=== PATIENT | male | born 1950 ===

== ENCOUNTER → 2025-05-18 | Outpatient (CLI) | payer OTHER ==
[~2025-05-18] MED LIST: ACET-2247 PO; CALC500T37 PO; DICL100G60 TP; DULO60CA73 PO; EMPA25TA3 PO; FAMO20 PO; FLUC150T61 PO; HYDR25TA2 PO; INSLAN SQ; KETO-99 OU; LACT20PA6 PO; LEVA15HF3 IH; LISI-894 PO; METF-1211 PO; PROCTOCM TP; ROSU20TA98 PO; TIOT185 IH; [UNRECOGNIZED DRUG - CODE] TP
== END | disposition home or self-care (01) ==
LOC: TELEHEALTH 07:38
PROVIDERS: ATTEND Internal Medicine
DX: I12.9 Hypertensive chronic kidney disease with stage 1 through stage 4 chronic kidney disease, or unspecified chronic kidney disease (principal); E11.22 Type 2 diabetes mellitus with diabetic chronic kidney disease; N18.30 Chronic kidney disease, stage 3 unspecified; E11.40 Type 2 diabetes mellitus with diabetic neuropathy, unspecified; E78.5 Hyperlipidemia, unspecified; J84.9 Interstitial pulmonary disease, unspecified; Z79.84 Long term (current) use of oral hypoglycemic drugs; Z79.899 Other long term (current) drug therapy; Z87.19 Personal history of other diseases of the digestive system; Z87.891 Personal history of nicotine dependence
CPT/HCPCS: Q3014